=== PATIENT | female | born 1990 | race Caucasian/White ===

== ENCOUNTER 2017-02-12 20:51 | Emergency (ER) | payer BC, OTHER ==
[2017-02-12 21:07] VITALS: BP 152/77
[2017-02-12] MEDS ORDERED: Lidocaine 1% MPF* 2 ML VIAL ONE (21:07)
[2017-02-12] MEDS ORDERED: Cephalexin CAP* 500 MG PO ONE (21:38)
--- NOTE | 2017-02-12 21:40 | UC ---
Laceration HPI - HPI Summary HPI Summary: patient sliced her finger on a kitchen slicer and has an v shaped flap on the right pinky - History Of Current Complaint Chief Complaint: UCLaceration Stated Complaint: RT HAND FINGER LAC Time Seen by Provider: 02/12/17 21:00 Hx Obtained From: Patient Laceration Location: Finger Mechanism Of Injury: Sharp Trauma Onset/Duration: Sudden Onset, Lasting Hours Severity: Moderate - Allergies/Home Medications Allergies/Adverse Reactions: Allergies Allergy/AdvReac Type Severity Reaction Status Date / Time No Known Allergies Allergy Verified 02/12/17 21:07 PMH/Surg Hx/FS Hx/Imm Hx Previously Healthy: Yes Endocrine History Of: Reports: Thyroid Disease - Hypo Denies: Diabetes, Hyperthyroidism, Hypothyroidism, Dyslipidemia Cardiovascular History Of: Denies: Cardiac Disorders, Hypertension, Pacemaker/ICD, Myocardial Infarction , Congestive Heart Failure, Atrial Fibrillation, Deep Vein Thrombosis, Bleeding Disorders Respiratory History Of: Denies: COPD, Asthma, Bronchitis, Pneumonia, Pulmonary Embolism GI/ History Of: Denies: Gastroesophageal Reflux, Ulcer, Gastrointestinal Bleed, Gall Bladder Disease, Kidney Stones, Diverticulitis, Renal Disease, Urosepsis Neurological History Of: Denies: TIA, CVA, Dementia, Seizures, Migraine Psychological History Of: Denies: Anxiety, Depression, Bipolar Disorder, Schizophrenia, Post Traumatic Stress Disorder Cancer History Of: Denies: Lung Cancer, Colorectal Cancer, Breast Cancer, Prostate Cancer, Cervical Cancer Other History Of: Negative For: HIV, Hepatitis B, Hepatitis C, Anticoagulant Therapy - Surgical History Surgical History: Yes Surgery Procedure, Year, and Place: Plastic surgery on face as a child-1991 - Family History Known Family History: Positive: Hypertension, Diabetes - Social History Alcohol Use: Rare Substance Use Type: None Smoking Status (MU): Never Smoked Tobacco - Immunization History Most Recent Influenza Vaccination: [id number] Most Recent Tetanus Shot: 09/2016 Review of Systems Constitutional: Negative Skin: Other - lac Eyes: Negative ENT: Negative Respiratory: Negative Cardiovascular: Negative Gastrointestinal: Negative Genitourinary: Negative Motor: Negative Neurovascular: Negative Musculoskeletal: Negative Neurological: Negative Psychological: Negative All Other Systems Reviewed And Are Negative: Yes Physical Exam Triage Information Reviewed: Yes Appearance: Well-Appearing, Well-Nourished, Pain Distress Vital Signs: Initial Vital Signs Temp 98.6 F 02/12/17 21:03 Pulse 85 02/12/17 21:03 Resp 17 02/12/17 21:03 BP 152/77 02/12/17 21:03 Pulse Ox 99 02/12/17 21:03 Vital Signs Reviewed: Yes Eye Exam: Normal Eyes: Positive: Conjunctiva Clear ENT Exam: Normal ENT: Positive: Normal ENT inspection, Hearing grossly normal, Pharynx normal, TMs normal Dental Exam: Normal Neck exam: Normal Neck: Positive: Supple, Nontender, No Lymphadenopathy Respiratory Exam: Normal Respiratory: Positive: Chest non-tender, Lungs clear, Normal breath sounds Cardiovascular Exam: Normal Cardiovascular: Positive: RRR, No Murmur, Pulses Normal Abdominal Exam: Normal Abdomen Description: Positive: Nontender, No Organomegaly, Soft Bowel Sounds: Positive: Present Musculoskeletal Exam: Normal Musculoskeletal: Positive: Strength Intact, ROM Intact, No Edema Neurological Exam: Normal Neurological: Positive: Alert, Muscle Tone Normal Psychological Exam: Normal Skin: Positive: Other - 2 cm v shaped laceration on the end of the right 5th finger, no loss of movement or sensation Laceration Repair - Laceration Repair 1 Description: Irregular : No Repair Necessary Laceration Size After Repair: Length (cm) - 2 cm Modified For Repair: No Type Injection: Digital Anesthesia Used: 1.0% Lido Cleansing Completed Via Routine Prep: Yes Irrigation With Pressure Irrigation Device: Yes Closure Material: Sutures - 3 Closure Method: Single Layer Suture Of: Skin Suture Type: Chromic Laceration Course/Dx - Course/Dx Course Of Treatment: hx obtained, exam performed, meds reviewed, laceration repaired, abx prescribed. - Differential Dx - Laceration/Wound Differental Diagnoses: Laceration Provider Diagnoses: laceration irregular Discharge - Discharge Plan Condition: Stable Disposition: HOME Prescriptions: Cephalexin CAP* [Keflex CAP*] 500 mg PO BID #9 cap Patient Education Materials: Laceration (ED) Referrals: Alba Campos PA [Primary Care Provider] - Additional Instructions: Return in 7 days for stitch removal Keep the area clean and dry. Keep the pressure dressing on till the morning. Follow up with any signs of infection.
== END 2017-02-12 21:45 | disposition home or self-care (01) ==
LOC: UCCORT 20:51
DX: S61.216A Laceration without foreign body of right little finger without damage to nail, initial encounter (principal); W27.8XXA Contact with other nonpowered hand tool, initial encounter; Y93.9 Activity, unspecified; Y92.9 Unspecified place or not applicable; E03.9 Hypothyroidism, unspecified
CPT/HCPCS: 12001; 99212; A9270-GY; G0463

== ENCOUNTER 2017-05-19 12:09 | Emergency (ER) | payer BC ==
[2017-05-19 13:01] VITALS: BP 132/64
--- NOTE | 2017-05-19 13:18 | UC ---
Eye Complaint HPI - HPI Summary HPI Summary: pt presents right eye, lower lid, graudal onset of tenderness and mild swelling. Pt states she wore eye makeup yesterday that she doesn't do on a daily basis . Pt states that the eye makeup began to "bug" her within two hours of applying it. She states she washed her face prior to bed but notes a small tender area on her right mid lower lid with mild swelling. - History of Current Complaint Chief Complaint: UCEye Stated Complaint: RIGHT EYE COMPLAINT Time Seen by Provider: 05/19/17 13:08 Hx Obtained From: Patient Hx Last Menstrual Period: 02/02/17 ?: No Onset/Duration: Gradual Onset, Lasting Hours Timing: Constant Severity Initially: Mild Severity Currently: Mild Location of Injury: Eye Lid (lower) - right Character: Dull Associated Signs And Symptoms: Positive: Negative, Swelling - mild mid, lower left lid - Allergies/Home Medications Allergies/Adverse Reactions: Allergies Allergy/AdvReac Type Severity Reaction Status Date / Time Lactose Intolerance (GI) Allergy GI Upset Verified 05/19/17 13:00 Home Medications: Home Medications Levothyroxine TAB* [Synthroid TAB*] 50 mcg PO DAILY 05/19/17 [History Confirmed 05/19/17] PMH/Surg Hx/FS Hx/Imm Hx Previously Healthy: Yes Other History Of: Negative For: HIV, Hepatitis B, Hepatitis C, Anticoagulant Therapy - Surgical History Surgical History: Yes Surgery Procedure, Year, and Place: Plastic surgery on face as a child-1991. [facility] - Family History Known Family History: Positive: Hypertension, Diabetes - Social History Alcohol Use: None Substance Use Type: None Smoking Status (MU): Never Smoked Tobacco - Immunization History Most Recent Influenza Vaccination: [id number] Most Recent Tetanus Shot: 09/2016 Review of Systems Constitutional: Negative Skin: Negative Eyes: Other - early development of stye to right lower eye lid ENT: Negative Respiratory: Negative Cardiovascular: Negative Gastrointestinal: Negative Genitourinary: Negative Motor: Negative Neurovascular: Negative Musculoskeletal: Negative Neurological: Negative Psychological: Negative All Other Systems Reviewed And Are Negative: Yes Physical Exam Triage Information Reviewed: Yes Appearance: Well-Appearing Vital Signs: Initial Vital Signs Temp 98.2 F 05/19/17 12:58 Pulse 74 05/19/17 12:58 Resp 14 05/19/17 12:58 BP 132/64 05/19/17 12:58 Pulse Ox 99 05/19/17 12:58 Vital Signs Reviewed: Yes Eye Exam: Other Eyes: Positive: Other: - mild selling and tendernes to mid lower right eyelid ENT Exam: Normal Neck exam: Normal Respiratory: Positive: Normal breath sounds Musculoskeletal Exam: Normal Neurological Exam: Normal Psychological Exam: Normal Skin Exam: Normal Eye Complaint Course/Dx - Differential Dx/Diagnosis Differential Diagnosis/HQI/PQRI: Other - stye Provider Diagnoses: stye Discharge - Discharge Plan Condition: Stable Disposition: HOME Prescriptions: Erythromycin OPTH OINT* 1 applic RIGHT EYE BEDTIME #1 tube Patient Education Materials: [place] (ED) Referrals: Alba Campos PA [Primary Care Provider] -
== END 2017-05-19 13:26 | disposition home or self-care (01) ==
LOC: UCCORT 12:09
DX: H00.012 Hordeolum externum right lower eyelid (principal)
CPT/HCPCS: 99212; G0463

== ENCOUNTER 2017-10-10 12:51 | Emergency (ER) | payer BC ==
[2017-10-10 15:26] VITALS: BP 131/72
--- NOTE | 2017-10-10 15:57 | UC ---
Complaint Female HPI - HPI Summary HPI Summary: ONE WEEK OF VAGINAL ITCHING AND OCCASIONAL WHITE DISCHARGE, WORSE WITH WIPING AND URINATION. NO BACK PAIN. NO ABDOMINAL PAIN. NO FEVER. NO CHANGES IN SEXUAL PARTNER, IN MONOGAMOUS RELATIONSHIP FOR FIVE YEARS. - History Of Current Complaint Chief Complaint: UCGU Stated Complaint: URINARY Time Seen by Provider: 10/10/17 15:18 Hx Obtained From: Patient, Family/Refinisher Hx Last Menstrual Period: 09/11/17 Onset/Duration: Gradual Onset, Lasting Days Timing: Intermittent Severity Initially: Mild Severity Currently: Mild Character: Dull Aggravating Factor(s): Urination, Other - WIPING Associated Signs And Symptoms: Positive: Vaginal Discharge. Negative: Back Pain , Nausea, Vomiting(# Of Episodes =), Genital Swelling, Genital Blisters - Risk Factors Ectopic Risk Factor: Negative Ovarian Torsion Risk Factor: Negative - Allergies/Home Medications Allergies/Adverse Reactions: Allergies Allergy/AdvReac Type Severity Reaction Status Date / Time Lactose Intolerance (GI) Allergy GI Upset Verified 10/10/17 15:25 PMH/Surg Hx/FS Hx/Imm Hx Previously Healthy: Yes Other History Of: Negative For: HIV, Hepatitis B, Hepatitis C, Anticoagulant Therapy - Surgical History Surgical History: Yes Surgery Procedure, Year, and Place: Plastic surgery on face as a child-1991. [facility] - Family History Known Family History: Positive: Hypertension, Diabetes - Social History Occupation: Employed Full-time Lives: With Family Alcohol Use: Rare Substance Use Type: None Smoking Status (MU): Never Smoked Tobacco - Immunization History Most Recent Influenza Vaccination: [id number] Most Recent Tetanus Shot: 09/2016 Review of Systems Constitutional: Negative Skin: Negative Eyes: Negative ENT: Negative Respiratory: Negative Genitourinary: Dysuria, Vaginal/Penile Discharge Motor: Negative Neurovascular: Negative Musculoskeletal: Negative Neurological: Negative Psychological: Negative Is Patient Immunocompromised?: No All Other Systems Reviewed And Are Negative: Yes Physical Exam Triage Information Reviewed: Yes Appearance: Well-Appearing, No Pain Distress, Well-Nourished, Obese Vital Signs: Initial Vital Signs Temp 98.6 F 10/10/17 15:22 Pulse 60 10/10/17 15:22 Resp 16 10/10/17 15:22 BP 131/72 10/10/17 15:22 Pulse Ox 100 10/10/17 15:22 Vital Signs Reviewed: Yes Eye Exam: Normal ENT Exam: Normal ENT: Positive: Normal ENT inspection, Pharynx normal, TMs normal Dental Exam: Normal Neck exam: Normal Neck: Positive: Supple, Nontender, No Lymphadenopathy Respiratory Exam: Normal Respiratory: Positive: Chest non-tender, Lungs clear, Normal breath sounds, No respiratory distress, No accessory muscle use Cardiovascular Exam: Normal Cardiovascular: Positive: RRR, No Murmur, Pulses Normal, Brisk Capillary Refill Abdominal Exam: Normal Abdomen Description: Positive: Nontender, No Organomegaly, Soft Musculoskeletal Exam: Normal Neurological Exam: Normal Psychological Exam: Normal Skin Exam: Normal - Additional Comments PELVIC EXAM: NO LESIONS OR RASHES TO EXTERNAL GENITALIA; SCANT OPAGUE WHITE THIN DISCHARGE IN VAGINAL VAULT; WHITE CLUSTERS ADHERENT TO VAGINAL DAWN. CERVIX NONTENDER, NONFRIABLE. Complaint Female Dx - Differential Dx/Diagnosis Differential Diagnosis/HQI/PQRI: Sexually Transmitted Disease, Urinary Tract Infection, Other - BV, CANDIDIASIS Provider Diagnoses: VULVOVAGINAL CANDIDIASIS Discharge - Discharge Plan Condition: Stable Disposition: HOME Prescriptions: Fluconazole 150 MG (NF) [Diflucan 150 mg (NF)] 150 mg PO ONCE #1 tab Patient Education Materials: Vulvovaginal Candidiasis (ED) Referrals: Alba Campos PA [Primary Care Provider] -
== END 2017-10-10 15:55 | disposition home or self-care (01) ==
LOC: UCCORT 12:51
DX: B37.3 Candidiasis of vulva and vagina (principal); R30.0 Dysuria; Z32.02 Encounter for pregnancy test, result negative; E66.9 Obesity, unspecified
CPT/HCPCS: 81003; 84702; 87086; 87480; 87510; 99212; G0463

== ENCOUNTER 2017-11-25 09:57 | Emergency (ER) | payer BC ==
[2017-11-25 11:15] VITALS: BP 130/69
--- NOTE | 2017-11-25 11:17 | UC ---
Throat Pain/Nasal Angelito HPI - HPI Summary HPI Summary: 27 y/o female presents to the urgent care c/o nasal congestion with yellowish and bloody discharge, sinus pressures, sore throat and dry cough for the past 3 days. Pt has been taking Ibuprofen PO and cough drops to alleviate symptoms. Pain is 5/10 w/ swallowing. Mild PEREZ and B/L ear pressure. Pt denies fever, SOB, chest pain, abdominal pain, N/V/D - History of Current Complaint Chief Complaint: UCRespiratory Stated Complaint: CONGESTION,SORE THROAT Time Seen by Provider: 11/25/17 11:16 Hx Obtained From: Patient Hx Last Menstrual Period: 11/07/17 ?: No Onset/Duration: Gradual Onset, Lasting Days - 3 days Severity: Moderate Pain Intensity: 5 Pain Scale Used: 0-10 Numeric Cough: Nonproductive Associated Signs & Symptoms: Positive: Sinus Discomfort, Nasal Discharge. Negative: Fever - Epiglottits Risk Factors Epiglottis Risk Factors: Negative - Allergies/Home Medications Allergies/Adverse Reactions: Allergies Allergy/AdvReac Type Severity Reaction Status Date / Time Lactose Intolerance (GI) Allergy GI Upset Verified 11/25/17 11:14 PMH/Surg Hx/FS Hx/Imm Hx Previously Healthy: Yes Endocrine History: Hypothyroidism Other History Of: Negative For: HIV, Hepatitis B, Hepatitis C, Anticoagulant Therapy - Surgical History Surgical History: Yes Surgery Procedure, Year, and Place: Plastic surgery on face as a child-1991. [facility] EXTRACTIONS - Family History Known Family History: Positive: Hypertension, Diabetes - Social History Occupation: Employed Full-time Lives: With Family Alcohol Use: None Substance Use Type: None Smoking Status (MU): Never Smoked Tobacco - Immunization History Most Recent Influenza Vaccination: [id number] Most Recent Tetanus Shot: 09/2016 Review of Systems Constitutional: Fever, Other - mild body aches Skin: Negative Eyes: Negative ENT: Sore Throat, Ear Ache - B/L ear pressure, Nasal Discharge, Sinus Congestion , Sinus Pain/Tenderness Respiratory: Cough - dry Cardiovascular: Negative Gastrointestinal: Negative Genitourinary: Negative Motor: Negative Neurovascular: Negative Musculoskeletal: Negative Neurological: Headache Psychological: Negative Is Patient Immunocompromised?: No All Other Systems Reviewed And Are Negative: Yes Physical Exam Triage Information Reviewed: Yes Vital Signs: Initial Vital Signs Temp 98.8 F 11/25/17 11:10 Pulse 65 11/25/17 11:10 Resp 18 11/25/17 11:10 BP 130/69 11/25/17 11:10 Pulse Ox 99 11/25/17 11:10 - Additional Comments VITAL SIGNS: Reviewed. GENERAL: Patient is a well developed and nourished who is sitting comfortable in the examining table. Patient is not in any acute respiratory distress. HEAD AND FACE: No signs of trauma. No ecchymosis, hematomas or skull depressions. No sinus tenderness. EYES: PERRLA, EOMI x 2, No injected conjunctiva, no nystagmus. No photophobia. EARS: Hearing grossly intact. Ear canals and tympanic membranes are within normal limits. MOUTH: Positive pharynx with erythema, no exudates, no palatal petechiae. No B/ L tonsillar enlargement with exudate. Uvula in midline. Nose: erythematous and edematous nasal mucosa with yellowish nasal discahrge NECK: Supple, trachea is midline, Positive anterior cervical lymphadenopathy, no JVD, no carotid bruit, no c-spine tenderness, neck with full ROM. No meningeal signs, no Kernig's or brudzinskis signs. CHEST: Symmetric, no tenderness at palpation LUNGS: Clear to auscultation bilaterally. No wheezing or crackles. CVS: Regular rate and rhythm, S1 and S2 present, no murmurs or gallops appreciated. ABDOMEN: Soft, non-tender. No signs of distention. No rebound no guarding, and no masses palpated. Bowel sounds are normal. EXTREMITIES: FROM in all major joints, no edema, no cyanosis or clubbing. NEURO: Alert and oriented x 3. No acute neurological deficits. Speech is normal and follows commands. SKIN: Dry and warm Throat Pain/Nasal Course/Dx - Course Course Of Treatment: 27 y/o female presents to the urgent care c/o nasal congestion with yellowish and bloody discharge, sinus pressures, sore throat and dry cough for the past 3 days. Pt has been taking Ibuprofen PO and cough drops to alleviate symptoms. Pain is 5/10 w/ swallowing. Mild PEREZ and B/L ear pressure. Pt denies fever, SOB, chest pain, abdominal pain, N/V/D. Hx obtained. Pt with pharyngitis on examination. Rapid strep ordered, result: negative.Influenza A&B ordered: result:negative.Pt advised to take ibuprofen PO to alleviates symptoms. Rx Flonase nasal spray to clear sinuses. Pt advised to rest, increase fluid intake, eat well and avoid strenuous exercise. If symptoms do not improve or worsen advised to return to the urgent care or f/u with her PCP for further evaluation and treatment. Pt understood and agreed with plan of care. - Differential Dx/Diagnosis Differential Diagnosis/HQI/PQRI: Influenza, Laryngitis, Otitis Media, Pharyngitis, Sinusitis, URI Provider Diagnoses: 1- upper respiratory infection Discharge - Discharge Plan Condition: Stable Disposition: HOME Prescriptions: Fluticasone NASAL SPRAY 50MCG* [Flonase NASAL SPRAY 50MCG*] 2 spray BOTH NARES DAILY #1 btl Patient Education Materials: Upper Respiratory Infection (ED) Referrals: Alba Campos PA [Primary Care Provider] - 3 Days Additional Instructions: 1- Please increase fluid intake and rest. Cotinue taking Ibuprofen PO q6-8hr prn to alleviate headache 2-Use Flonase as directed to help drain fluid. Also buy saline drops to clear sinuses 3-Take Sudafed or Claritin PO to alleviates sinus congestion 4-Return to the clinic or PCP if symptoms do not improve for further management and treatment
== END 2017-11-25 12:00 | disposition home or self-care (01) ==
LOC: UCCORT 09:57
DX: J06.9 Acute upper respiratory infection, unspecified (principal); E03.9 Hypothyroidism, unspecified
CPT/HCPCS: 87502; 87651; 99212; G0463

== ENCOUNTER 2018-08-01 13:25 | Emergency (ER) | payer BC ==
[2018-08-01 14:59] VITALS: BP 152/78
[2018-08-01] MEDS ORDERED: Albuterol 2.5 MG/3 ML NEB.SOL* (0.083%) INH ONE (15:18)
--- NOTE | 2018-08-01 15:18 | UC ---
UC General HPI - HPI Summary HPI Summary: Patient is complaining four-day history of cough, wheezing and sore throat only upon waking in the mornings. She denies any associated fever or chills, chest pain or asthma. Her child has similar signs and symptoms. - History of Current Complaint Chief Complaint: UCRespiratory Stated Complaint: COUGH Time Seen by Provider: 08/01/18 14:56 Hx Obtained From: Patient Hx Last Menstrual Period: 06/30/18 Onset/Duration: Gradual Onset Pain Intensity: 3 Alleviating: nothing Associated Signs & Symptoms: Positive: Cough, Wheezing. Negative: Chest Pain, Fever - Allergy/Home Medications Allergies/Adverse Reactions: Allergies Allergy/AdvReac Type Severity Reaction Status Date / Time lactose Allergy GI Upset Verified 08/01/18 14:59 Home Medications: Home Medications GuaiFENesin DM* [Robitussin DM*] 2 tab PO Q4H PRN 08/01/18 [History Confirmed ] L.acidoph,Paracasei, B.lactis [Probiotic] 1 each PO QPM 08/01/18 [History Confirmed 08/01/18] Lysine [l-Lysine] 1,000 mg PO QPM 08/01/18 [History Confirmed 08/01/18] diphenhydrAMINE HCl [Benadryl Allergy] 25 mg PO QPM 08/01/18 [History Confirmed 08/01/18] PMH/Surg Hx/FS Hx/Imm Hx Endocrine History: Thyroid Disease Other History Of: Negative For: HIV, Hepatitis B, Hepatitis C, Anticoagulant Therapy - Surgical History Surgical History: Yes Surgery Procedure, Year, and Place: Plastic surgery on face as a child-1991. [facility] - Family History Known Family History: Positive: Hypertension, Diabetes, Seizure Disorder - Social History Occupation: Employed Full-time Lives: With Family Alcohol Use: None Substance Use Type: None Smoking Status (MU): Never Smoked Tobacco - Immunization History Most Recent Influenza Vaccination: [id number] Most Recent Tetanus Shot: 09/2016 Vaccination Up to Date: Yes Review of Systems Constitutional: Negative Skin: Negative Eyes: Negative ENT: Sore Throat Respiratory: Shortness Of Breath, Cough Cardiovascular: Negative Gastrointestinal: Negative Genitourinary: Negative Motor: Negative Neurovascular: Negative Musculoskeletal: Negative Neurological: Negative Psychological: Negative Is Patient Immunocompromised?: No All Other Systems Reviewed And Are Negative: Yes Physical Exam Triage Information Reviewed: Yes Appearance: Well-Appearing Vital Signs: Initial Vital Signs Temp 98 F 08/01/18 14:48 Pulse 87 08/01/18 14:48 Resp 20 08/01/18 14:48 BP 152/78 08/01/18 14:48 Pulse Ox 99 08/01/18 14:48 Eyes: Positive: Conjunctiva Clear ENT: Positive: Pharynx normal, TMs normal. Negative: Nasal congestion, Nasal drainage Neck: Positive: Supple, Nontender, No Lymphadenopathy Respiratory: Positive: Lungs clear, No respiratory distress, Decreased breath sounds Cardiovascular: Positive: RRR, No Murmur Abdomen Description: Positive: Nontender, No Organomegaly, Soft Bowel Sounds: Positive: Present Musculoskeletal: Positive: ROM Intact Neurological: Positive: Alert Psychological: Positive: Age Appropriate Behavior Skin Exam: Normal Course/Dx - Course Course Of Treatment: pt states BP is usually 125-135 on top but does go up with illnesses. BETTER POST ALBUTEROL NEB TX. PT'S CHILD HAS A NEB AT HOME THUS WILL WRITE FOR ALBUTEROL SOLUTION FOR HOME USE AND AN INHALER FOR USE AT WORK. PT ADVISED USE ONE OR THE OTHER BUT NOT BOTH. - Differential Dx - Multi-Symptom Provider Diagnoses: BRONCHITIS. BRONCHOSPASM Discharge - Sign-Out/Discharge Documenting (check all that apply): Patient Departure All imaging exams completed and their final reports reviewed: No Studies - Discharge Plan Condition: Improved Disposition: HOME Prescriptions: Albuterol 2.5MG/3ML (0.083%)* [Ventolin 2.5 MG/3 ML NEB.NAIN*] 2.5 mg INH Q6H #1 box Albuterol HFA INHALER* [Ventolin HFA Inhaler*] 2 puff INH Q6H #1 mdi Patient Education Materials: Acute Bronchitis (ED), Bronchospasm (ED) Referrals: Alba Campos PA [Primary Care Provider] - 5 Days Additional Instructions: USE THE INHALER OR THE NEBULIZER BUT NOT BOTH AT THE SAME TIME. - Billing Disposition and Condition Condition: IMPROVED Disposition: Home
== END 2018-08-01 16:02 | disposition home or self-care (01) ==
LOC: UCCORT 13:25
DX: J20.9 Acute bronchitis, unspecified (principal); E07.9 Disorder of thyroid, unspecified
CPT/HCPCS: 99212; G0463

== ENCOUNTER 2019-09-06 13:03 | Emergency (ER) | payer BC ==
--- NOTE | 2019-09-06 15:34 | ED ---
Skin Complaint - HPI Summary HPI Summary: 29 y/o female presents to the urgent care c/o Rt side of her chin w/ redness and yellowish crusting and swollen s/p skin burn w/ a curling wand 2 days ago. Pt reports the curling wand was 410 degrees F. The first day a blister formed and then it popped yesterday, but she was scratching yesterday since it was itching. This morning redness, swelling and tenderness developed. Pain at touch is 4/10. Pt has not applied anything. Pt is UTD w/ Tetanus vaccine 3 years ago. Pt denies fever, SOB, chest pain, PEREZ, dizziness, abdominal pain, N/V/d. - History of Current Complaint Time Seen by Provider: 09/06/19 15:32 Stated Complaint: SKIN CONCERN Hx Obtained From: Patient Hx Last Menstrual Period: 06/30/18 Onset/Duration: Started Days Ago - 2 days ago superficial burn w/ a curling wand , Still Present Skin Exposure Onset/Duration: Days Ago - 2 days, Worse Since: - today Timing: Constant Onset Severity: Moderate Current Severity: Moderate Pain Intensity: 4 Pain Scale Used: 0-10 Numeric Skin Location: Face - RT side of chin burn Character: Swelling, Pruritus, Pain, Redness Aggravating Symptom(s): Touch Alleviating Symptom(s): Cold Associated Signs & Symptoms: Rash - superficial burn on RT side of chin w/ a curling wand, Tenderness Related History: Other: - burn w/ a curling wand - Allergy/Home Medications Allergies/Adverse Reactions: Allergies Allergy/AdvReac Type Severity Reaction Status Date / Time lactose Allergy GI Upset Verified 09/06/19 15:33 Home Medications: Home Medications Albuterol HFA INHALER* [Ventolin HFA Inhaler*] 2 puff INH Q6H PRN 09/06/19 [ History Confirmed 09/06/19] PMH/Surg Hx/FS Hx/Imm Hx Previously Healthy: Yes Endocrine/Hematology History: Reports: Hx Thyroid Disease - Hypo Denies: Hx Anticoagulant Therapy, Hx Diabetes Cardiovascular History: Denies: Hx Congestive Heart Failure, Hx Deep Vein Thrombosis, Hx Hypertension , Hx Myocardial Infarction, Hx Pacemaker/ICD Respiratory History: Reports: Hx Asthma - as a child Denies: Hx Chronic Obstructive Pulmonary Disease (COPD), Hx Lung Cancer, Hx Pneumonia, Hx Pulmonary Embolism GI History: Denies: Hx Gall Bladder Disease, Hx Gastrointestinal Bleed, Hx Ulcer, Hx Urosepsis History: Denies: Hx Kidney Stones, Hx Renal Disease Neurological History: Denies: Hx Dementia, Hx Migraine, Hx Seizures, Hx Transient Ischemic Attacks (TIA) Psychiatric History: Denies: Hx Anxiety, Hx Depression, Hx Schizophrenia, Hx Bipolar Disorder - Surgical History Surgery Procedure, Year, and Place: Plastic surgery on face as a child-1991. WISDOM THEETH EXTRACTIONS Infectious Disease History: Reports: Hx Shingles - 2010, back Denies: Traveled Outside the [place] in Last 30 Days - Family History Known Family History: Positive: Hypertension, Diabetes, Seizure Disorder - Social History Occupation: Employed Full-time Lives: With Family Alcohol Use: None Substance Use Type: Reports: None Smoking Status (MU): Never Smoked Tobacco Review of Systems Constitutional: Negative Eyes: Negative ENT: Negative Cardiovascular: Negative Respiratory: Negative Gastrointestinal: Negative Genitourinary: Negative Musculoskeletal: Negative Positive: Other - skin burn on Rt side of chin w/ some redness and pain w/ curling wand Neurological: Negative Psychological: Normal All Other Systems Reviewed And Are Negative: Yes Physical Exam - Summary Physical Exam Summary: Vital Signs Reviewed: Yes General: well appearing, well nourished obese female in no acute apparent pain distress, sitting comfortably on examining table Eye Exam: Normal Eyes: Positive: Conjunctiva Clear - PERRLA< EOMI, fundi grossly normal ENT: Positive: Normal ENT inspection, Hearing grossly normal, Pharynx normal, TMs normal Neck: Positive: Supple, Nontender, No Lymphadenopathy Respiratory: Positive: Chest non-tender, Lungs clear, Normal breath sounds, No respiratory distress Cardiovascular: Positive: RRR, No Murmur, Pulses Normal, Brisk Capillary Refill Abdomen Description: Positive: Nontender, No Organomegaly, Soft. Negative: CVA Tenderness (R), CVA Tenderness (L) Bowel Sounds: Positive: Present Musculoskeletal: Positive: Strength Intact, ROM Intact, No Edema Neurological: Positive: Alert, Muscle Tone Normal Psychological Exam: Normal Skin: Positive: superficial erythematous patch w/ an open small blisters which is now w/ a yellowish crusting discharge on RT side of chin 3.0cm x 1.0cm in size and mild swelling observed. skin blanches w/ pressure, and tender to palpation . Triage Information Reviewed: Yes Course/Dx - Course Course Of Treatment: 29 y/o female presents to the urgent care c/o Rt side of her chin w/ redness and yellowish crusting and swollen s/p skin burn w/ a curling wand 2 days ago. Pt reports the curling wand was 410 degrees F. The first day a blister formed and then it popped yesterday, but she was scratching yesterday since it was itching. This morning redness, swelling and tenderness developed. Pain at touch is 4/10. Pt has not applied anything. Pt is UTD w/ Tetanus vaccine 3 years ago. Pt denies fever, SOB, chest pain, PEREZ, dizziness, abdominal pain, N/V/d. Hx obtained. Skin: Positive: superficial erythematous patch w/ an open small blisters which is now w/ a yellowish crusting discharge on RT side of chin 3.0cm x 1.0cm in size and mild swelling observed. skin blanches w/ pressure, and tender to palpation on examination. Pt's wound irrigated w/ sterile water and covered w/ Bacitracin oint. Pt w/ possible cellulitis. Rx Keflex PO adn Bacitracin oint as directed below and advised if not improvement to return to the urgent care of f/u w/ PCP for further management. Pt understood and agreed w/ plan of care. - Differential Diagnoses - Skin Complaint Differential Diagnoses: Abscess, Cellulitis, Local Allergic Reaction, MRSA, Urticaria, Other - burn - Diagnoses Provider Diagnoses: Burn of face, first degree, Cellulitis Discharge ED - Sign-Out/Discharge Documenting (check all that apply): Patient Departure - D/C home All imaging exams completed and their final reports reviewed: No Studies - Discharge Plan Condition: Stable Disposition: HOME Prescriptions: Bacitracin OINTMENT* 1 applic TOPICAL BID #1 tube Cephalexin CAP* [Keflex CAP*] 500 mg PO QID #28 cap Patient Education Materials: Cellulitis (ED), Superficial Burn (ED) Referrals: Alba Campos PA [Primary Care Provider] - Additional Instructions: 1- Please take the full course of the antibiotic to avoid resistance.Take yogurts w/ probiotics or Culturelle to protect your GI system 2- Please apply Bacitrain topical cream around the superficial burn of the RT side of chin as directed 3- If you do not improve or if symptoms worsen after 48 hrs despite taking antibiotic please go immediately to the ER for further treatment. 4-If symptoms do not improve please return to the urgent care or f/u with your PCP in 3 days for further evaluation and treatment. - Billing Disposition and Condition Condition: STABLE Disposition: Home
[2019-09-06 15:42] VITALS: BP 130/75
== END 2019-09-06 16:25 | disposition home or self-care (01) ==
LOC: UCCORT 13:03
DX: T20.13XA Burn of first degree of chin, initial encounter (principal); L03.211 Cellulitis of face; X16.XXXA Contact with hot heating appliances, radiators and pipes, initial encounter; Z91.011 Allergy to milk products
CPT/HCPCS: 99212; G0463

== ENCOUNTER 2019-11-17 09:19 | Emergency (ER) | payer BC ==
[2019-11-17 09:54] VITALS: BP 147/86
--- NOTE | 2019-11-17 10:07 | UC ---
Throat Pain/Nasal Angelito HPI - HPI Summary HPI Summary: Pt presents with c/o cough, St, nasal congestion, ST, X 3 days. Pt denies known fever. Pt has been taking OTC decongestant medication with some improvement in symptoms. - History of Current Complaint Chief Complaint: UCGeneralIllness Stated Complaint: COUGH,CONGESTION Hx Obtained From: Patient Hx Last Menstrual Period: 11/01/19 ?: No Onset/Duration: Gradual Onset, Lasting Days, Still Present, Worse Since - onset Severity: Moderate Pain Intensity: 0 Cough: Productive Associated Signs & Symptoms: Positive: Dysphagia, Nasal Discharge - Epiglottits Risk Factors Epiglottis Risk Factors: Negative - Allergies/Home Medications Allergies/Adverse Reactions: Allergies Allergy/AdvReac Type Severity Reaction Status Date / Time lactose Allergy GI Upset Verified 11/17/19 09:48 Home Medications: Home Medications Ibuprofen TAB* [Advil TAB*] 3 tab PO ONCE 11/17/19 [History Confirmed 11/17/19] Pseudoephedrine TAB* [Sudafed TAB*] 1 tab PO ONCE 11/17/19 [History Confirmed ] PMH/Surg Hx/FS Hx/Imm Hx Previously Healthy: Yes Other History Of: Negative For: HIV, Hepatitis B, Hepatitis C, Anticoagulant Therapy - Surgical History Surgical History: Yes Surgery Procedure, Year, and Place: Plastic surgery on face as a child-1991. WISDOM THEETH EXTRACTIONS - Family History Known Family History: Positive: Hypertension, Diabetes, Seizure Disorder - Social History Occupation: Employed Full-time Lives: With Family Alcohol Use: None Substance Use Type: None Smoking Status (MU): Never Smoked Tobacco Have You Smoked in the Last Year: No - Immunization History Most Recent Influenza Vaccination: 9465-0328 Most Recent Tetanus Shot: 09/2016 Vaccination Up to Date: Yes Review of Systems All Other Systems Reviewed And Are Negative: Yes Constitutional: Positive: Chills, Fatigue Skin: Positive: Negative Eyes: Positive: Negative ENT: Positive: Sore Throat, Nasal Discharge, Sinus Congestion Respiratory: Positive: Cough Cardiovascular: Positive: Negative Gastrointestinal: Positive: Negative Genitourinary: Positive: Negative Motor: Positive: Negative Neurovascular: Positive: Negative Musculoskeletal: Positive: Myalgia Neurological: Positive: Negative Psychological: Positive: Negative Is Patient Immunocompromised?: No Physical Exam Triage Information Reviewed: Yes Appearance: Ill-Appearing Vital Signs: Initial Vital Signs Temp 98.6 F 11/17/19 09:49 Pulse 97 11/17/19 09:49 Resp 16 11/17/19 09:49 BP 147/86 11/17/19 09:49 Pulse Ox 99 11/17/19 09:49 Vital Signs Reviewed: Yes Eye Exam: Normal ENT: Positive: Nasal congestion Dental Exam: Normal Neck exam: Normal Respiratory Exam: Normal Cardiovascular Exam: Normal Musculoskeletal Exam: Normal Neurological Exam: Normal Psychological Exam: Normal Skin Exam: Normal Throat Pain/Nasal Course/Dx - Differential Dx/Diagnosis Differential Diagnosis/HQI/PQRI: Influenza, Pharyngitis, Sinusitis, Tonsillitis , URI Provider Diagnosis: URI (upper respiratory infection) Discharge ED - Sign-Out/Discharge Documenting (check all that apply): Patient Departure All imaging exams completed and their final reports reviewed: No Studies - Discharge Plan Condition: Stable Disposition: HOME Prescriptions: Guaifenesin/Pseudoephedrne HCl [Mucinex D ER 600-60 mg Tablet] 1 each PO Q12H # 14 tab.er.12h Patient Education Materials: Upper Respiratory Infection (ED), Viral Syndrome ( ED) Forms: *Work Release Referrals: Alba Campos PA [Primary Care Provider] - If Needed - Billing Disposition and Condition Condition: STABLE Disposition: Home
== END 2019-11-17 10:17 | disposition home or self-care (01) ==
LOC: UCCORT 09:19
DX: J06.9 Acute upper respiratory infection, unspecified (principal); Z91.011 Allergy to milk products
CPT/HCPCS: 99212; G0463